=== PATIENT | male | born 1965 | race Caucasian/White ===

== ENCOUNTER 2022-08-24 16:41 | Emergency (ER) | payer OTHER ==
[2022-08-24 17:01] VITALS: PULSE 80; RESP 20; TEMP 98; BMI 29.1
[2022-08-24] MEDS ORDERED: DIPHTH,PERTUSS(ACELL),TET 0.5 ML DISP.SYRIN IM ONE ×2 (17:01→17:56)
[2022-08-24 18:52] VITALS: BP 150/100
== END 2022-08-24 19:03 | disposition home or self-care (01) ==
LOC: FER 16:41
PROC: 0HQ1XZZ Repair Face Skin, External Approach (ICD-10-PCS; principal; 2022-08-24)
PROC: 3E0234Z Introduction of Serum, Toxoid and Vaccine into Muscle, Percutaneous Approach (ICD-10-PCS; 2022-08-24)
DX: S01.81XA Laceration without foreign body of other part of head, initial encounter (principal); W01.0XXA Fall on same level from slipping, tripping and stumbling without subsequent striking against object, initial encounter
CPT/HCPCS: 70450-TC; 90715; 99284-25

== ENCOUNTER 2022-09-06 11:05 | Emergency (ER) | payer OTHER ==
[2022-09-06 11:20] VITALS: BP 155/96; PULSE 85; RESP 16; TEMP 99.2; BMI 28.5
== END 2022-09-06 12:13 | disposition home or self-care (01) ==
LOC: FER 11:05
DX: S01.81XD Laceration without foreign body of other part of head, subsequent encounter (principal); W10.9XXA Fall (on) (from) unspecified stairs and steps, initial encounter; Z48.02 Encounter for removal of sutures
CPT/HCPCS: 99281-25